=== PATIENT | female | born 1960 | race Caucasian/White ===

== ENCOUNTER → 2016-12-19 | Outpatient (REF) | payer OTHER | LOC: M LAB REF 12:56 | PROVIDERS: ATTEND Nurse Practitioner Family | DX: E03.9 Hypothyroidism, unspecified (principal) ==

== ENCOUNTER 2021-05-25 21:18 | Emergency (ER) | payer OTHER, SELFPAY ==
[~2021-05-25] VITALS: Ht 160 cm; Wt 91.3 kg
[2021-05-25 21:22] VITALS: BP 158/75
--- OUTSIDE RECORDS SUMMARY | 2021-05-25 21:29 | CCD | Continuity of Care Document ---
Author Author Gloria SANCHEZ [facility] Organization Unknown Address [address] [facility] [address] [place] [address] Phone [phone] Care Team Providers Care Livestock Auctioneer Name Role Phone Judy Maya ANP AUTM [phone] Problems Description No Information Available Social History Type Date Description Comments Sex Unknown ETOH Use Occasionally consumes alcohol MA YBE ONE DRINK A WEEK Tobacco Use Start: Unknown End: Unknown Patient is a former smoker QUIT 1990 X 10-12YRS OFF AND ON 1 PACK A DAY Allergies, Adverse Reactions, Alerts Description No Known Drug Allergies Medications Active Medications SIG Qnty Indications Ordering Provide r Date CBD Oil 25MG bid PO Or Uses The Topical Judy Pool FNP 03/27/2018 Magnesium 500mg Tablets 4 by mouth every day Judy Maya FNP 03/27/2018 [place] Thyroid 60mg Tablets Take One Tablet By Mouth Every Day 90tabs Giorgio Mendoza MD 02/13/2017 Trace Minerals 1 PO qd Occasionally Jessy Maya FNP 02/11/2016 Organically Bound Minerals 1 PO qd Christin Maya FNP 02/11/2016 Advil 200mg Capsules 2 pills 3x/d w/ food prn Skylar France M.D. 02/12/20 15 Vitamin D 1000Unit Tablets 1 by mouth every day Judy Maya FNP 01/27/2015 Herbal Supplements as directed daily Kalina Maya FNP 01/23/2014 Probiotic Capsules 1 by Judy Scott FNP 01/23/2014 Calcium 1000 + D [id number] T Judy Meyer FNP 01/13/2012 Vitamin C 500mg Chewtabs 1 po [facility]d [facility] 01/08/2010 Digestive Enzymes Tablets tid With Meals prn [facility] 01/08/2010 Immunizations Description No Information Available Vital Signs Date Vital Result Comment 04/02/2021 7:59am BP Systolic 122 mmHg RT Arm BP Diastolic 60 mmHg RT Arm Heart Rate 64 /min Height 62.25 inches 5'2.25" Weight 195.00 lb BMI (Body Mass Index) 35.4 kg/m2 03/30/2020 9:13am BP Systolic 122 mmHg RT Arm BP Diastolic 68 mmHg RT Arm Heart Rate 68 /min Height 62.25 inches 5'2.25" Weight 196.00 lb BMI (Body Mass Index) 35.6 kg/m2 Results Test Acquired Date Facility Test Result H/L Range Note Laboratory test finding 03/31/2021 [facility] Career Resource Technician: Dr Giorgio Mendoza [place], [place] [id number] [phone] Vitamin D 25-Hydroxy <pending> Complete Blood Count 03/31/2021 [facility] Career Resource Technician: [place] [address] [phone] WBC 3.7 x10*3/UL Low 4.1 - 10.9 RBC 4.81 x10*6/UL 4.20 - 6.30 Hemoglobin 14.7 g/dL 12.0 - 18.0 Hematocrit 42.7 % 37.0 - 51.0 MCV 88.6 fL 80.0 - 97.0 MCH 30.6 pg 26.0 - 32.0 MCHC 34.5 g/dL 31.0 - 38.0 RDW 13.3 % 11.6 - 13.7 PLT 227 x10*3/UL 140 - 440 MPV 8.7 FL 7.8 - 11.0 Lymph % 49.5 % 10.0 - 58.5 Mid % 9.1 % 1.7 - 9.3 Neut % 41.4 % 37.0 - 92.0 Lymph # 1.8 x10*3/UL 0.6 - 4.1 Mid # 0.4 x10*3/UL 0.1 - 0.6 Neut # 1.5 x10*3/UL Low 2.0 - 7.8 Basic Metabolic Panel 03/31/2021 [facility] Career Resource Technician: [place] [address] [phone] Glucose 97 mg/dL 74 - 99 1 BUN 12 mg/dL 7 - 18 Creatinine 0.7 mg/dL 0.6 - 1.3 Sodium 142 mEq/L 136 - 145 Potassium 4.1 mEq/L 3.5 - 5.1 Chloride 105 mEq/L 98 - 107 Carbon Dioxide 27 mEq/L 21 - 32 Calcium 9.1 mg/dL 8.5 - 10.1 GFR >= 60 mL/min >60 GFR >= 60 mL/min >60 2 Lipid Profile 03/31/2021 [facility] , Career Resource Technician: Dr Giorgio [place]endoza [place] [id number] [phone] Cholesterol 267 mg/dL High 131 - 200 Triglycerides 67 mg/dL 30 - 150 HDL Cholesterol 78 mg/dL High 35 - 60 LDL (Calculated) 176 CALC High 50 - 159 Laboratory test finding 03/31/2021 [facility] Career Resource Technician: [place] [address] [phone] Thyroid Stimulating Hormone 1.20 uIU/mL 0.3 6 - 3.74 Lipid Profile 10/02/2020 [facility] Career Resource Technician: [place] [address] [phone] Cholesterol 277 mg/dL High 131 - 200 Triglycerides 76 mg/dL 30 - 150 HDL Cholesterol 78 mg/dL High 35 - 60 LDL (Calculated) 184 CALC High 50 - 159 Laboratory test finding 10/02/2020 [facility], Career Resource Technician: [place] [address] [phone] Thyroid Stimulating Hormone 1.76 uIU/mL 0.3 6 - 3.74 1 100-125 mg/dL PRE-DIABET ES/FASTING >126 mg/dL DIABETES/FASTING 2 CHRONIC KIDNEY DISEASE STAGI NG PER NKF STAGE I & II GFR >= 60 NORMAL TO MILDLY DECREASED STAGE III GFR 30-59 MODERATELY DECREASED STAGE IV GFR 15-29 SEVERELY DECREASED STAGE V GFR <15 VERY LITTLE GFR LEFT ESRD GFR <15 ON DISABILITY SPECIALIST Procedures Date Code Description Status 04/30/2020 [id number] Mammogram Completed 04/25/2019 [id number] Mammogram Completed 04/25/2018 [id number] Mammogram Completed 04/24/2017 [id number] Mammogram Completed 04/19/2016 [id number] Mammogram Completed 07/14/2014 [id number] Mammogram Completed 07/12/2013 [id number] Mammogram Completed 07/04/2012 [id number] Mammogram Completed 04/05/2012 [id number] Colonoscopy Completed 06/24/2011 [id number] Mammogram Completed 06/23/2010 [id number] Mammogram Completed Medical Devices Description No Information Available Encounters Description No Information Available Assessments Date Code Description Provider 04/02/2021 Z00.00 Encounter for genera l adult medical examination without abnormal findings Angelica Sanchez, [facility] 04/02/2021 J30.9 Allergic rhinitis, unspecified J venancio Sanchez, [facility] 04/02/2021 E78.5 Hyperlipidemia, unspecified Maria lucille Daniel, [facility] 04/02/2021 E03.9 Hypothyroidism, unspecified Maria lucille Daniel, [facility] 04/02/2021 Z83.71 Family history of colonic polyps Angelica Sanchez, [facility] 04/02/2021 E55.9 Vitamin D deficiency, unspecifie d Angelica Sanchez, [facility] 04/02/2021 E66.09 Other obesity due to excess neli rosio Angelica Sanchez, [facility] 04/02/2021 Z68.35 Body mass index [BMI] 35.0-35.9, adult Angelica Sanchez, [facility] 10/02/2020 E78.5 Hyperlipidemia, unspecified Maria lucille Daniel, [facility] 10/02/2020 E78.5 Hyperlipidemia, unspecified Lab Schedule 10/02/2020 E03.9 Hypothyroidism, unspecified Maria lucille Daniel, [facility] 10/02/2020 E03.9 Hypothyroidism, unspecified Lab Schedule Plan of Treatment 04/02/2021 - Angelica Sanchez [facility]* Z00.00 Encounter for general adult medical examination without abnormal findings* Comments:* TSH in September, annual follow up and PRN. COVID vaccine discussed. Mammogram and FIT testing are ordered.Patient defers further pap smears for screening at this point. * J30.9 Allergic rhinitis, unspecified* Comments:* Utilizing Grape Seed nasal spray; recommend a short course of flonase daily x2 weeks. * E78.5 Hyperlipidemia, unspecified* Comments:* Lipids are above goal but improved from 09/2020. No current pharmacotherapy. Weight loss, dietary modifications and exercise are encouraged. * E03.9 Hypothyroidism, unspecified* Comments:* TSH is pending. Continues on supplementation, adjust accordingly. * Z83.71 Family history of colonic polyps* Comments:* Colonoscopy due next year. FIT testing ordered. * E55.9 Vitamin D deficiency, unspecified* Comments:* Vitamin D level is pending. Continues on supplementation. * E66.09 Other obesity due to excess calories * Z68.35 Body mass index [BMI] 35.0-35.9, adult Functional Status Description No Information Available Mental Status Description No Information Available Referrals Description No Information Available
--- OUTSIDE RECORDS SUMMARY | 2021-05-25 21:29 | CCD | Continuity of Care Document ---
Author Author [facility] Organization Unknown Address [address] [address] Phone Unavailable Care Team Providers Care Marriage Performer Name Role Phone Judy Maya ANP AUTM [phone] Problems Description No Information Available Social History [...] SIG Qnty Indications Ordering Provide r Date Krill Oil 500mg Capsules 1 po qd Judy Maya FNP 03/30/2020 Shingrix 50mcg/0.5ML Suspension Re c administer at pharmacy 1units Judy Maya FNP 03/28 CBD Oil 25MG bid PO Or Uses The Topical Kolt onJudy FNP 03/27/2018 Magnesium 500mg Tablets 4 by mouth every day Judy Maya FNP 03/27/2018 [place] Thyroid 60mg Tablets Take One Tablet By Mouth Every Day 90tabs Giorgio Mendoza MD 02/13/2017 Trace Minerals 1 PO qd Judy Maya FNP 0 02/11/2016 Organically Bound Minerals 1 PO qd Christin Maya FNP 02/11/2016 Advil 200mg Capsules 2 pills 3x/d w/ food prn Skylar France M.D. 02/12/20 15 Vitamin D 1000Unit Tablets 1 by mouth every day Judy Maya FNP 01/27/2015 Herbal Supplements as directed daily Kalina Maya FNP 01/23/2014 Probiotic Capsules 1 by Judy Scott,BRAZING MACHINE OPERATOR HELPER 01/23/2014 Calcium 1000 + D [id number] T eli Judy Maya,[facility]PHINE 01/13/2012 Vitamin C 500mg Chewtabs 1 po qd Judy Maya FNP 01/08/2010 Digestive Enzymes Tablets tid With Meals prn Judy Maya FNP 01/08/2010 Immunizations Description No Information Available Vital Signs Date Vital Result Comment 03/30/2020 9:13am BP Systolic 122 mmHg RT Arm BP Diastolic 68 mmHg RT Arm Heart Rate 68 /min Height 62.25 inches 5'2.25" Weight 196.00 lb BMI (Body Mass Index) 35.6 kg/m2 03/28/2019 8:05am BP Systolic 128 mmHg RT Arm BP Diastolic 70 mmHg RT Arm Heart Rate 70 /min Height 62.25 inches 5'2.25" Weight 197.12 lb O2 % BldC Oximetry 98 % RM Air BMI (Body Mass Index) 35.8 kg/m2 Results Test Acquired Date Facility Test Result H/L Range Note Laboratory test finding 03/31/2021 [facility] Image Archivist: [place] [address] [phone] Vitamin D 25-Hydroxy <pending> Laboratory test finding 03/31/2021 [facility] sachin Ayon Image Archivist: LISETTE Lopez [address] [phone] TSH <pending> Lipid Profile 10/02/2020 [facility] Jono Image Archivist: LISETTE Lopez [address] [phone] Cholesterol 277 mg/dL High 131 - 200 Triglycerides 76 mg/dL 30 - 150 HDL Cholesterol 78 mg/dL High 35 - 60 LDL (Calculated) 184 CALC High 50 - 159 Laboratory test finding 10/02/2020 [facility] Image Archivist: LISETTE Lopez [address] [phone] Thyroid Stimulating Hormone 1.76 uIU/mL 0.3 6 - 3.74 Procedures Date Code Description Status 04/30/2020 [id number] Mammogram Completed 04/25/2019 [id number] Mammogram Completed 04/25/2018 [id number] Mammogram Completed 04/24/2017 [id number] Mammogram Completed 04/19/2016 [id number] Mammogram Completed 07/14/2014 [id number] Mammogram Completed 07/12/2013 [id number] Mammogram Completed 07/04/2012 [id number] Mammogram Completed 04/05/2012 [id number] Colonoscopy Completed 06/24/2011 [id number] Mammogram Completed 06/23/2010 [id number] Mammogram Completed Medical Devices Description No Information Available Encounters Description No Information Available Assessments Date Code Description Provider 10/02/2020 E78.5 Hyperlipidemia, unspecified Maria Sanchez, BRAZING MACHINE OPERATOR HELPER 10/02/2020 E78.5 Hyperlipidemia, unspecified Lab Schedule 10/02/2020 E03.9 Hypothyroidism, unspecified DELPHINE Prieto 10/02/2020 E03.9 Hypothyroidism, unspecified Lab Schedule Plan of Treatment Future Appointment(s):* 04/02/2021 8:00 am - DELPHINE Vo at [facility] 03/30/2020 - DELPHINE Vo* Z00.00 Encounter for general adult medical examination without abnormal findings* Comments:* Follows annually. Normal exam. RTC PRN. Refuses all immunizations including annual flu. * E78.5 Hyperlipidemia, unspecified* Comments:* Significantly higher, about 20 points, from last year. Patient unsure of cause. Reviewed diet and exercise, will repeat in 6 months lab only. Heart healthy mediterranean style diet reviewed and encouraged. * E03.9 Hypothyroidism, unspecified* Comments:* Clinically and chemically euthyroid. On Gerber Thyroid 60 mg daily. * J30.9 Allergic rhinitis, unspecified* Comments:* Having a particularly bad year, using herbal supplement which is quite helpful. * Z83.71 Family history of colonic polyps* Comments:* Annual stool guaiac, kit given today.Colonoscopy 2011, will be due she believes in two years. * E55.9 Vitamin D deficiency, unspecified* Comments:* Vitamin D level is pending. Continues on supplementation. * E66.09 Other obesity due to excess calories* Comments:* Down one pound. Commended on loss.Weight loss would be favorable.Implement dietary modifications (low fat, low carb, high fiber, lean proteins, decreasing porti on sizes, small frequent high protein snacks, and making substitutions in refined sugars).Implement regular exercise as tolerated and increase daily water intake. * Z68.35 Body mass index (BMI) 35.0-35.9, adult * Z13.89 Encounter for screening for other disorder * All * New Medication:* Krill Oil 500 mg - 1 po qd * Comments:* Nonsmoker. Tetanus 11/22/04. Refused immunizations. Mammogram order given. Pap should be updated next year. Flu shot is encouraged but patient does refuse.COVID precautions are discussed and social distancing/mask use/ frequent hand washing and sanitizing are encouraged.Recheck TSH and lipids in 6 months.Follow up annually, sooner PRN. Functional Status Description No Information Available Mental Status Description No Information Available Referrals Description No Information Available
--- OUTSIDE RECORDS SUMMARY | 2021-05-25 21:29 | CCD | Continuity of Care Document ---
Author Author [facility] Organization Unknown Address [address] [address] Phone Unavailable Problems Description No Information Available Social History [...] mouth every day Judy Maya FNP 03/27/2018 [place] Thyroid 60mg Tablets Take One Tablet By Mouth Every Day 90tabs Giorgio Mendoza MD 02/13/2017 Trace Minerals 1 PO qd Occasionally Jessy Maya FNP 02/11/2016 Organically Bound Minerals 1 PO qd Christin MayaLOGISTICS MANAGEMENT SPECIALIST 02/11/2016 Advil 200mg Capsules 2 pills 3x/d w/ food prn Skylar France M.D. 02/12/20 15 Vitamin D 1000Unit Tablets 1 by mouth every day Judy Maya FNP 01/27/2015 Herbal Supplements as directed daily Kalina Maya FNP 01/23/2014 Probiotic Capsules 1 by Judy Scott FNP 01/23/2014 Calcium 1000 + D [id number] T Judy Meyer FNP 01/13/2012 Vitamin C [...] H/L Range Note Laboratory test finding 03/31/2021 [facility] raghavendra, [place] Heavy Coil Winder: Dr [place]ior[place] [address] [phone] Vitamin D 25-Hydroxy 86.1 ng/ml High 24.0 - 80.0 1 Complete Blood Count 03/31/2021 [facility] Heavy Coil Winder: Dr Gior[place] [address] [phone] WBC 3.7 x10*3/UL Low 4.1 - 10.9 [...] 2.0 - 7.8 Basic Metabolic Panel 03/31/2021 [facility] Heavy Coil Winder: [place] [address] [phone] Glucose 97 mg/dL 74 - 99 2 BUN 12 mg/dL 7 - 18 Creatinine 0.7 mg/dL 0.6 - 1.3 Sodium 142 mEq/L 136 - 145 Potassium 4.1 mEq/L 3.5 - 5.1 Chloride 105 mEq/L 98 - 107 Carbon Dioxide 27 mEq/L 21 - 32 Calcium 9.1 mg/dL 8.5 - 10.1 GFR >= 60 mL/min >60 GFR >= 60 mL/min >60 3 Lipid Profile 03/31/2021 [facility] , Heavy Coil Winder: Dr Giorgio [place] [address] [phone] Cholesterol 267 mg/dL High 131 - 200 Triglycerides 67 mg/dL 30 - 150 HDL Cholesterol 78 mg/dL High 35 - 60 LDL (Calculated) 176 CALC High 50 - 159 Laboratory test finding 03/31/2021 [facility], Heavy Coil Winder: Dr Giorgio Mendoza [place] [id number] [phone] Thyroid Stimulating Hormone 1.20 uIU/mL 0.3 6 - 3.74 Lipid Profile 10/02/2020 [facility] , Heavy Coil Winder: Dr Giorgio [place] [address] [phone] Cholesterol 277 mg/dL High 131 - 200 Triglycerides 76 mg/dL 30 - 150 HDL Cholesterol 78 mg/dL High 35 - 60 LDL (Calculated) 184 CALC High 50 - 159 Laboratory test finding 10/02/2020 [facility], Heavy Coil Winder: Dr Giorgio Mendoza [place] [id number] [phone] Thyroid Stimulating Hormone 1.76 uIU/mL 0.3 6 - 3.74 1 This test was performed [employer] Vitamin D immunoassay kit. Values obtained with different assay methods should not be used interchangeably. 2 100-125 mg/dL PRE-DIABET ES/FASTING >126 mg/dL DIABETES/FASTING 3 CHRONIC KIDNEY DISEASE STAGI NG PER NKF STAGE I & II GFR >= 60 NORMAL TO MILDLY DECREASED STAGE III GFR 30-59 MODERATELY DECREASED STAGE IV GFR 15-29 SEVERELY DECREASED STAGE V GFR <15 VERY LITTLE GFR LEFT ESRD GFR <15 ON ROLLER CLEANER Procedures Date Code Description Status 04/30/2020 [id number] Mammogram Completed 04/25/2019 [id number] Mammogram Completed 04/25/2018 [id number] Mammogram Completed 04/24/2017 [id number] Mammogram Completed 04/19/2016 [id number] Mammogram Completed 07/14/2014 [id number] Mammogram Completed 07/12/2013 [id number] Mammogram Completed 07/04/2012 [id number] Mammogram Completed 04/05/2012 [id number] Colonoscopy Completed 06/24/2011 [id number] Mammogram Completed 06/23/2010 [id number] Mammogram Completed Medical Devices Description No Information Available Encounters Description No Information Available Assessments Date Code Description Provider 04/02/2021 Z00.00 Encounter for genera l adult medical examination without abnormal findings Angelica Sanchez, [facility] 04/02/2021 J30.9 Allergic rhinitis, unspecified J venancio Sanchez, [facility] 04/02/2021 E78.5 Hyperlipidemia, unspecified Maria Sanchez, [facility] 04/02/2021 E03.9 Hypothyroidism, unspecified Maria lucilletalia Sanchez, [facility] 04/02/2021 Z83.71 Family history of colonic polyps Angelica Sanchez, [facility] 04/02/2021 E55.9 Vitamin D deficiency, unspecifie d Angelica Sanchez, [facility] 04/02/2021 E66.09 Other obesity due to excess neli rosio Angelica Sanchez, [facility] 04/02/2021 M15.9 Polyosteoarthritis, unspecified Angelica Sanchez, [facility] 04/02/2021 Z68.35 Body mass index [BMI] 35.0-35.9, adult Angelica Sanchez, [facility] 10/02/2020 E78.5 Hyperlipidemia, unspecified Maria lucilletalia Sanchez, [facility] 10/02/2020 E78.5 Hyperlipidemia, unspecified Lab Schedule 10/02/2020 E03.9 Hypothyroidism, unspecified Maria lucille Daniel, [facility] 10/02/2020 E03.9 Hypothyroidism, unspecified Lab Schedule Plan of Treatment Future Appointment(s):* 04/07/2022 9:00 am - [facility]INE Vo at [facility] * 09/29/2021 9:10 am - Lab Schedule at [facility] 04/02/2021 - DELPHINE Vo* Z00.00 Encounter for general adult medical examination without abnormal findings* Comments:* TSH in September, annual follow up and PRN. COVID vaccine discussed. Mammogram and FIT testing are ordered.Patient defers further pap smears for screening at this point. * J30.9 Allergic rhinitis, unspecified* Comments:* Utilizing Grape Seed nasal spray; recommend a short course of Flonase daily x2 weeks. * E78.5 Hyperlipidemia, unspecified* [...] Other obesity due to excess calories* Comments:* Weight loss would be favorable.Implement dietary modifications (low fat, low carb, high fiber, lean proteins, decreasing portion sizes, small frequent high protein snacks, and making substitutions in refined sugars).Implement regular exercise as tolerated and increase daily water intake. * M15.9 Polyosteoarthritis, unspecified* Comments:* May use Advil or Tylenol arthritis as per package instruction. Somewhat worse lately as she is pushing herself to do more as she is planning to move. * Z68.35 Body mass index [BMI] 35.0-35.9, adult * All * Comments:* Nonsmoker. Tetanus 11/22/04 booster with injury. Refused immunizations. Mammogram order given. Patient defers further routine screening pap smears.Flu shot is encouraged but patient does refuse.COVID precautions are discussed and social distancing/mask use/ frequent hand washing and sanitizing are encouraged. Vaccine discussed patient refuses at this point. Recheck TSH and lipids in 6 months.Follow up annually, sooner PRN. Functional Status Description No Information Available Mental Status Description No Information Available Referrals Description No Information Available
--- OUTSIDE RECORDS SUMMARY | 2021-05-25 21:29 | CCD | Continuity of Care Document ---
Author Author [facility] Organization Unknown Address [address] [address] Phone Unavailable Care Team Providers Care Refractory Tile Helper Name Role Phone Judy Maya ANP AUTM [phone] Problems Description No Information Available Social History [...] mouth every day Judy Maya FNP 03/27/2018 [place] Thyroid 60mg Tablets Take One Tablet By [...] FNP 01/23/2014 Probiotic Capsules 1 by Judy Soctt,DELPHINE 01/23/2014 Calcium 1000 + D [id number] T eli Judy Maya,TRANSLATOR/INTERPRETER 01/13/2012 Vitamin C 500mg Chewtabs 1 po [...] H/L Range Note Laboratory test finding 03/31/2021 [facility] sachin mabry Live In Housekeeper Nanny: Dr Giorgio Mendoza [place], [place] [id number] [phone] Vitamin D 25-Hydroxy <pending> Complete Blood Count 03/31/2021 [facility] Live In Housekeeper Nanny: [place] [address] [phone] WBC 3.7 x10*3/UL Low 4.1 - 10.9 [...] 2.0 - 7.8 Basic Metabolic Panel 03/31/2021 [facility] Live In Housekeeper Nanny: [place] [address] [phone] Glucose 97 mg/dL 74 - 99 1 [...] 60 mL/min >60 2 Lipid Profile 03/31/2021 [facility] , Live In Housekeeper Nanny: Dr Giorgio [place]endoza [place] [id number] [phone] Cholesterol 267 mg/dL High 131 - 200 Triglycerides 67 mg/dL 30 - 150 HDL Cholesterol 78 mg/dL High 35 - 60 LDL (Calculated) 176 CALC High 50 - 159 Laboratory test finding 03/31/2021 [facility] issherif, Live In Housekeeper Nanny: [place] [address] [phone] Thyroid Stimulating Hormone 1.20 uIU/mL 0.3 6 - 3.74 Lipid Profile 10/02/2020 [facility] , Live In Housekeeper Nanny: Dr Giorgio [place]endoza [place] [id number] [phone] Cholesterol 277 mg/dL High 131 - 200 Triglycerides 76 mg/dL 30 - 150 HDL Cholesterol 78 mg/dL High 35 - 60 LDL (Calculated) 184 CALC High 50 - 159 Laboratory test finding 10/02/2020 [facility], Live In Housekeeper Nanny: [place] [address] [phone] Thyroid Stimulating Hormone 1.76 uIU/mL 0.3 6 - 3.74 1 100-125 mg/dL PRE-DIABET ES/FASTING >126 mg/dL DIABETES/FASTING 2 CHRONIC KIDNEY DISEASE STAGI NG PER NKF STAGE I & II GFR >= 60 NORMAL TO MILDLY DECREASED STAGE III GFR 30-59 MODERATELY DECREASED STAGE IV GFR 15-29 SEVERELY DECREASED STAGE V GFR <15 VERY LITTLE GFR LEFT ESRD GFR <15 ON FACILITY ASSISTANT Procedures Date Code Description Status 04/30/2020 [id number] Mammogram Completed 04/25/2019 [id number] Mammogram Completed 04/25/2018 [id number] Mammogram Completed 04/24/2017 [id number] Mammogram Completed 04/19/2016 [id number] Mammogram Completed 07/14/2014 [id number] Mammogram Completed 07/12/2013 [id number] Mammogram Completed 07/04/2012 [id number] Mammogram Completed 04/05/2012 [id number] Colonoscopy Completed 06/24/2011 [id number] Mammogram Completed 06/23/2010 [id number] Mammogram Completed Medical Devices Description No Information Available Encounters Description No Information Available Assessments Date Code Description Provider 10/02/2020 E78.5 Hyperlipidemia, unspecified DELPHINE Prieto 10/02/2020 E78.5 Hyperlipidemia, unspecified Lab Schedule 10/02/2020 E03.9 Hypothyroidism, unspecified DELPHINE Prieto 10/02/2020 E03.9 Hypothyroidism, unspecified Lab Schedule Plan of Treatment Future Appointment(s):* 04/02/2021 8:00 am - [facility]INE Vo at [facility] 03/30/2020 - DELPHINE Vo* Z00.00 [...] unspecified* Comments:* Clinically and chemically euthyroid. On [place] Thyroid 60 mg daily. * J30.9 Allergic [...]
--- OUTSIDE RECORDS SUMMARY | 2021-05-25 21:29 | CCD | Continuity of Care Document ---
Author Author Lab ScheduleGloria Organization Unknown Address [address] [address] Phone Unavailable Care Team Providers Care Mover Name Role Phone Judy Maya ANP AUTM [phone] Problems Description No Information Available Social History [...] mouth every day Judy Maya FNP 03/27/2018 [place] Thyroid 60mg Tablets Take One Tablet By [...] FNP 01/23/2014 Probiotic Capsules 1 by Judy Scott,ELECTRODE CLEANING MACHINE OPERATOR 01/23/2014 Calcium 1000 + D [id number] T eli Judy Maya,DELPHINE 01/13/2012 Vitamin C [...] H/L Range Note Laboratory test finding 03/31/2021 [place] Abbe mabry Map Compiler: [place] [address] [phone] Vitamin D 25-Hydroxy <pending> Laboratory test finding 03/31/2021 [place] sachin Ayon Map Compiler: LISETTE Lopez [address] [phone] TSH <pending> Lipid Profile 10/02/2020 [place] Jono Map Compiler: LISETTE Lopez [address] [phone] Cholesterol 277 mg/dL High 131 - 200 Triglycerides 76 mg/dL 30 - 150 HDL Cholesterol 78 mg/dL High 35 - 60 LDL (Calculated) 184 CALC High 50 - 159 Laboratory test finding 10/02/2020 [place] [facility] mabry Map Compiler: LISETTE Lopez [address] [phone] Thyroid Stimulating Hormone 1.76 uIU/mL 0.3 6 - 3.74 Procedures Date Code Description Status 04/30/2020 [id number] Mammogram Completed 04/25/2019 [id number] Mammogram Completed 04/25/2018 [id number] Mammogram Completed 04/24/2017 [id number] Mammogram Completed 04/19/2016 [id number] Mammogram Completed 07/14/2014 [id number] Mammogram Completed 07/12/2013 [id number] Mammogram Completed 07/04/2012 [id number] Mammogram Completed 04/05/2012 [id number] Colonoscopy Completed 06/24/2011 [id number] Mammogram Completed 06/23/2010 [id number] Mammogram Completed Medical Devices Description No Information Available Encounters Description No Information Available Assessments Date Code Description Provider 10/02/2020 E78.5 Hyperlipidemia, unspecified Maria Sanchez, ELECTRODE CLEANING MACHINE OPERATOR 10/02/2020 E78.5 Hyperlipidemia, unspecified Lab Schedule 10/02/2020 E03.9 Hypothyroidism, unspecified DELPHINE Prieto 10/02/2020 E03.9 Hypothyroidism, unspecified Lab Schedule Plan of Treatment Future Appointment(s):* 04/02/2021 8:00 am - DELPHINE Vo at [facility] 03/30/2020 - DELPHINE Vo* Z00.00 [...] unspecified* Comments:* Clinically and chemically euthyroid. On [place] Thyroid 60 mg daily. * J30.9 Allergic [...]
--- OUTSIDE RECORDS SUMMARY | 2021-05-25 21:29 | CCD | Continuity of Care Document ---
Author Author Gloria SANCHEZ [facility] Organization Unknown Address [address] [facility] [address] [place] [address] Phone [phone] Problems Description No Information Available Social History [...] mouth every day Judy Maya FNP 03/27/2018 [place] Thyroid 60mg Tablets Take One Tablet By Mouth Every Day 90tabs Giorgio Mendoza MD 02/13/2017 [place] Minerals 1 PO qd Occasionally Jessy Maya FNP 02/11/2016 Organically Bound Minerals 1 PO qd Christin Maya FNP 02/11/2016 Advil 200mg Capsules 2 pills 3x/d w/ food prn Skylar France M.D. 02/12/20 15 Vitamin D 1000Unit Tablets 1 by mouth every other day Giorgio Mendoza MD 01/27/2015 Herbal Supplements as directed daily Kalina Maay FNP 01/23/2014 Probiotic Capsules 1 by Judy Scott FNP 01/23/2014 Calcium 1000 + D [id number] T Judy Meyer FNP 01/13/2012 Vitamin C [...] H/L Range Note Laboratory test finding 03/31/2021 [place] [employer] sachin mabry Export Agent: [place] [address] [phone] Vitamin D 25-Hydroxy 86.1 ng/ml High 24.0 - 80.0 1 Complete Blood Count 03/31/2021 [place] Export Agent: [place] [address] [phone] WBC 3.7 x10*3/UL Low 4.1 - 10.9 [...] 2.0 - 7.8 Basic Metabolic Panel 03/31/2021 [facility] Export Agent: Dr Giorgio Mendoza [place], [place] [id number] [phone] Glucose 97 mg/dL 74 - 99 2 [...] 60 mL/min >60 3 Lipid Profile 03/31/2021 [facility] Export Agent: Dr Gior[place] [address] [phone] Cholesterol 267 mg/dL High 131 - 200 Triglycerides 67 mg/dL 30 - 150 HDL Cholesterol 78 mg/dL High 35 - 60 LDL (Calculated) 176 CALC High 50 - 159 Laboratory test finding 03/31/2021 [place] [facility] Export Agent: [place] [address] [phone] Thyroid Stimulating Hormone 1.20 uIU/mL 0.3 6 - 3.74 1 This test was performed [employer] IP Vitamin D immunoassay kit. Values obtained with [...] LITTLE GFR LEFT ESRD GFR <15 ON DIGITAL PROJECT MANAGER Procedures Date Code Description Status 04/02/2021 24839 Est Prevent Med (40-64Yrs) Compl eted 04/30/2020 [id number] Mammogram Completed 04/25/2019 [id number] Mammogram Completed 04/25/2018 [id number] Mammogram Completed 04/24/2017 [id number] Mammogram Completed 04/19/2016 [id number] Mammogram Completed 07/14/2014 [id number] Mammogram Completed 07/12/2013 [id number] Mammogram Completed 07/04/2012 [id number] Mammogram Completed 04/05/2012 [id number] Colonoscopy Completed 06/24/2011 [id number] Mammogram Completed 06/23/2010 [id number] Mammogram Completed Medical Devices Description No Information Available Encounters Type Date Location Provider Dx Diagnosis Office Visit 04/02/2021 8:00a [facility], [facility] Z00.00 Encntr for general adult medical exam w/ o abnormal findings J30.9 Allergic rhinitis, unspecifi ed E78.5 Hyperlipidemia, unspecified E03.9 Hypothyroidism, unspecified Z83.71 Family history of colonic po lyps E55.9 Vitamin D deficiency, unspec ified M15.9 Polyosteoarthritis, unspecif ied E66.09 Other obesity due to excess calories Z68.35 Body mass index [BMI] 35.0-3 5.9, adult Z13.89 Encounter for screening for other disorder Assessments Date Code Description Provider 04/02/2021 Z00.00 Encounter for genera l adult medical examination without abnormal findings Angelica Sanchez, [facility] 04/02/2021 J30.9 Allergic rhinitis, unspecified J illian Daniel, [facility] 04/02/2021 E78.5 Hyperlipidemia, unspecified Maria lucille Daniel, [facility] 04/02/2021 E03.9 Hypothyroidism, unspecified Maria lucille Daniel, [facility] 04/02/2021 Z83.71 Family history of colonic polyps Angelica Sanchez, [facility] 04/02/2021 E55.9 Vitamin D deficiency, unspecifie d Angelica Daniel, [facility] 04/02/2021 M15.9 Polyosteoarthritis, unspecified Angelica Daniel, [facility] 04/02/2021 E66.09 Other obesity due to excess neli rosio Angelica Sanchez, [facility] 04/02/2021 Z68.35 Body mass index [BMI] 35.0-35.9, adult Angelica Sanchez, [facility] 04/02/2021 Z13.89 Encounter for screening for othe r disorder Angelica Sanchez, [facility] 03/31/2021 Z00.00 Encounter for genera l adult medical examination without abnormal findings Angelica Sanchez, [facility] 03/31/2021 Z00.00 Encounter for genera l adult medical examination without abnormal findings Lab Schedule 03/31/2021 E78.00 Pure hypercholesterolemia, unspe cified Angelica Daniel, [facility] 03/31/2021 E78.00 Pure hypercholesterolemia, unspe cified Lab Schedule 03/31/2021 E03.9 Hypothyroidism, unspecified Maria adkins Daniel, [facility] 03/31/2021 E03.9 Hypothyroidism, unspecified Lab Schedule 03/31/2021 E55.9 Vitamin D deficiency, unspecifie d Angelica Garzara, [facility] 03/31/2021 E55.9 Vitamin D deficiency, unspecifie d Lab Schedule Plan of Treatment Future Appointment(s):* 04/07/2022 9:00 am - [place]INE Vo at [facility] * 09/29/2021 9:10 am - Lab Schedule at [facility] 04/02/2021 - DELPHINE Vo* Z00.00 [...] level is pending. Continues on supplementation. * M15.9 Polyosteoarthritis, unspecified* Comments:* May use Advil or Tylenol arthritis as per package instruction. Somewhat worse lately as she is pushing herself to do more as she is planning to move. * E66.09 Other obesity due to excess calories* Comments:* Weight loss would be favorable.Implement dietary modifications (low fat, low carb, high fiber, lean proteins, decreasing portion sizes, small frequent high protein snacks, and making substitutions in refined sugars).Implement regular exercise as tolerated and increase daily water intake. * Z68.35 Body mass index [BMI] 35.0-35.9, adult * Z13.89 Encounter for screening for other disorder * All * Comments:* Nonsmoker. Tetanus 11/22/04 [...]
--- OUTSIDE RECORDS SUMMARY | 2021-05-25 21:29 | CCD | Continuity of Care Document ---
Author Author Lab ScheduleGloria Organization Unknown Address [address] [address] Phone Unavailable Care Team Providers Care Video Game Repair Technician Name Role Phone Judy Maya ANP AUTM [phone] Problems Description No Information Available Social History [...] mouth every day Judy Maya FNP 03/27/2018 [place] Thyroid 60mg Tablets Take One Tablet By [...] FNP 01/23/2014 Probiotic Capsules 1 by Judy Scott,FIREARMS INSPECTOR 01/23/2014 Calcium 1000 + D [id number] T eli Judy Maya,DELPHINE 01/13/2012 Vitamin C [...] H/L Range Note Laboratory test finding 03/31/2021 [place] [facility] mabry Manager Mental Health: [place] [address] [phone] Vitamin D 25-Hydroxy <pending> Laboratory test finding 03/31/2021 [place] s[place]in Ayon Manager Mental Health: LISETTE Lopez [address] [phone] TSH <pending> Lipid Profile 10/02/2020 [place] Jono Manager Mental Health: LISETTE Lopez [address] [phone] Cholesterol 277 mg/dL High 131 - 200 Triglycerides 76 mg/dL 30 - 150 HDL Cholesterol 78 mg/dL High 35 - 60 LDL (Calculated) 184 CALC High 50 - 159 Laboratory test finding 10/02/2020 [place] [facility] mabry Manager Mental Health: LISETTE Lopez [address] [phone] Thyroid Stimulating Hormone 1.76 uIU/mL 0.3 6 - 3.74 Procedures Date Code Description Status 04/30/2020 [id number] Mammogram Completed 04/25/2019 [id number] Mammogram Completed 04/25/2018 [id number] Mammogram Completed 04/24/2017 [id number] Mammogram Completed 04/19/2016 [id number] Mammogram Completed 07/14/2014 [id number] Mammogram Completed 07/12/2013 [id number] Mammogram Completed 07/04/2012 [id number] Mammogram Completed 04/05/2012 [id number] Colonoscopy Completed 06/24/2011 [id number] Mammogram Completed 06/23/2010 [id number] Mammogram Completed Medical Devices Description No Information Available Encounters Description No Information Available Assessments Date Code Description Provider 10/02/2020 E78.5 Hyperlipidemia, unspecified Maria Sanchez, FIREARMS INSPECTOR 10/02/2020 E78.5 Hyperlipidemia, unspecified Lab Schedule 10/02/2020 E03.9 Hypothyroidism, unspecified DELPHINE Prieto 10/02/2020 E03.9 Hypothyroidism, unspecified Lab Schedule Plan of Treatment Future Appointment(s):* 04/02/2021 8:00 am - DELPHINE Vo at [facility] 03/30/2020 - DELPHINE Vo* Z00.00 [...] unspecified* Comments:* Clinically and chemically euthyroid. On [place] Thyroid 60 mg daily. * J30.9 Allergic [...]
--- OUTSIDE RECORDS SUMMARY | 2021-05-25 21:29 | CCD | Continuity of Care Document ---
Author Author Lab ScheduleGloria Organization Unknown Address [address] [address] Phone Unavailable Problems Description No Information Available [...] mouth every day Judy Maya FNP 03/27/2018 [place] Thyroid 60mg Tablets Take One Tablet By [...] Scott FNP 01/23/2014 Calcium 1000 + D [id number] T Judy Meyer FNP 01/13/2012 Vitamin C [...] H/L Range Note Laboratory test finding 03/31/2021 [place] [employer] Agent raghavendra, sachin Chlorinator: [place] [address] [phone] Vitamin D 25-Hydroxy 86.1 ng/ml High 24.0 - 80.0 1 Complete Blood Count 03/31/2021 [place] Nurse Practitioner [facility] pc Chlorinator: [place]ior[place] [address] [phone] WBC 3.7 x10*3/UL Low 4.1 - 10.9 [...] 2.0 - 7.8 Basic Metabolic Panel 03/31/2021 [facility] Chlorinator: Dr i[place] [address] [phone] Glucose 97 mg/dL 74 - 99 2 [...] 60 mL/min >60 3 Lipid Profile 03/31/2021 [facility] Chlorinator: [place] [address] [phone] Cholesterol 267 mg/dL High 131 - 200 Triglycerides 67 mg/dL 30 - 150 HDL Cholesterol 78 mg/dL High 35 - 60 LDL (Calculated) 176 CALC High 50 - 159 Laboratory test finding 03/31/2021 [place] [facility] [employer] [facility] Chlorinator: Dr [place] [address] [phone] Thyroid Stimulating Hormone 1.20 uIU/mL 0.3 6 - 3.74 1 This test was performed [employer] IP Vitamin D immunoassay kit. Values obtained [...] LITTLE GFR LEFT ESRD GFR <15 ON MOTOR DRIVER Procedures Date Code Description Status 04/30/2020 [id number] Mammogram Completed 04/25/2019 [id number] Mammogram Completed 04/25/2018 [id number] Mammogram Completed 04/24/2017 [id number] Mammogram Completed 04/19/2016 [id number] Mammogram Completed 07/14/2014 [id number] Mammogram Completed 07/12/2013 [id number] Mammogram Completed 07/04/2012 [id number] Mammogram Completed 04/05/2012 [id number] Colonoscopy Completed 06/24/2011 [id number] Mammogram Completed 06/23/2010 [id number] Mammogram Completed Medical Devices Description No Information Available Encounters Description No Information Available Assessments Date Code Description Provider 04/02/2021 Z00.00 Encounter for genera l adult medical examination without abnormal findings Angelica Daniel, [facility] 04/02/2021 J30.9 Allergic rhinitis, unspecified J illlucille Garzara, [facility] 04/02/2021 E78.5 Hyperlipidemia, unspecified Maira lucille Daniel, [facility] 04/02/2021 E03.9 Hypothyroidism, unspecified Maria lucille Daniel, [facility] 04/02/2021 Z83.71 Family history of colonic polyps Angelica Sanchez, [facility] 04/02/2021 E55.9 Vitamin D deficiency, unspecifie d Angelica Sanchez, [facility] 04/02/2021 E66.09 Other obesity due to excess neli rosio Angelicaamie Sanchez, [facility] 04/02/2021 M15.9 Polyosteoarthritis, unspecified Angelica Daniel, [facility] 04/02/2021 Z68.35 Body mass index [BMI] 35.0-35.9, adult Angelica Daniel, [facility] 03/31/2021 Z00.00 Encounter for genera l adult medical examination without abnormal findings Angelica Daniel, [facility] 03/31/2021 Z00.00 Encounter for genera l adult medical examination without abnormal findings Lab Schedule 03/31/2021 E78.00 Pure hypercholesterolemia, unspe cified Angelica Garzara, [facility] 03/31/2021 E78.00 Pure hypercholesterolemia, unspe cified Lab Schedule 03/31/2021 E03.9 Hypothyroidism, unspecified Maria lucille Daniel, [facility] 03/31/2021 E03.9 Hypothyroidism, unspecified Lab Schedule 03/31/2021 E55.9 Vitamin D deficiency, unspecifie d Angelica Sanchez, [facility] 03/31/2021 E55.9 Vitamin D deficiency, unspecifie d Lab Schedule Plan of Treatment Future Appointment(s):* 04/07/2022 9:00 am - MINH VoP at [facility] * 09/29/2021 9:10 am - Lab Schedule at [facility] 04/02/2021 - DELPHINE Vo* Z00.00 [...]
--- OUTSIDE RECORDS SUMMARY | 2021-05-25 21:30 | CCD ---
Author Author [facility] Organization [facility] Address Unknown Phone Unavailable Care Team Providers Care Certified Alcohol Drug Counselor Name Role Phone Daniel, Angelica TOOL MECHANIC Unavailable Unavailable Daniel, Angelica TOOL MECHANIC Unavailable Unavailable Daniel, Angelica TOOL MECHANIC Unavailable Unavailable Daniel, Angelica TOOL MECHANIC Unavailable Unavailable Daniel, Angelica TOOL MECHANIC Unavailable Unavailable Daniel, Angelica TOOL MECHANIC Unavailable Unavailable Daniel, Angelica TOOL MECHANIC Unavailable Unavailable Daniel, Angelica TOOL MECHANIC Unavailable Unavailable Daniel, Angelica TOOL MECHANIC Unavailable Unavailable Daniel, Angelica TOOL MECHANIC Unavailable Unavailable Daniel, Angelica TOOL MECHANIC Unavailable Unavailable Daniel, Angelica TOOL MECHANIC Unavailable Unavailable Daniel, Angelica TOOL MECHANIC Unavailable Unavailable Daniel, Angelica TOOL MECHANIC Unavailable Unavailable Daniel, Angelica TOOL MECHANIC Unavailable Unavailable Daniel, Angelica TOOL MECHANIC Unavailable Unavailable Daniel, Angelica TOOL MECHANIC Unavailable Unavailable Daniel, Angelica TOOL MECHANIC Unavailable Unavailable Daniel, Angelica TOOL MECHANIC Unavailable Unavailable Daniel, Angelica TOOL MECHANIC Unavailable Unavailable Daniel, Angelica TOOL MECHANIC Unavailable Unavailable Daniel, Angelica TOOL MECHANIC Unavailable Unavailable Daniel, Angelica TOOL MECHANIC Unavailable Unavailable Daniel, Angelica TOOL MECHANIC Unavailable Unavailable Daniel, Angelica TOOL MECHANIC Unavailable Unavailable Daniel, Angelica TOOL MECHANIC Unavailable Unavailable Daniel, Angelica TOOL MECHANIC Unavailable Unavailable Daniel, Angelica TOOL MECHANIC Unavailable Unavailable Daniel, Angelica TOOL MECHANIC Unavailable Unavailable Daniel, Angelica TOOL MECHANIC Unavailable Unavailable Daniel, Angelica TOOL MECHANIC Unavailable Unavailable Daniel, Angelica TOOL MECHANIC Unavailable Unavailable Daniel, Angelica TOOL MECHANIC Unavailable Unavailable Daniel, Angelica TOOL MECHANIC Unavailable Unavailable Daniel, Angelica TOOL MECHANIC Unavailable Unavailable Re-disclosure Warning The records that you are about to access may contain information from federally-assisted alcohol or drug abuse programs. If such information is present, then the following federally mandated warning applies: This information has been disclosed to you from records protected by federal confidentiality rules (42 CFR part 2). The federal rules prohibit you from making any further disclosure of this information unless further disclosure is expressly permitted by the written consent of the person to whom it pertains or as otherwise permitted by 42 CFR part 2. A general authorization for the release of medical or other information is NOT sufficient for this purpose. The Federal rules restrict any use of the information to criminally investigate or prosecute any alcohol or drug abuse patient.The records that you are about to access may contain highly sensitive health information, the redisclosure of which is protected by Article 27-F of the [facility] Public Health law. If you continue you may have access to information: Regarding HIV / AIDS; Provided by facilities licensed or operated by the [facility] Office of Mental Health; or Provided by the [facility] Office for People With Developmental Disabilities. If such information is present, then the following [facility] mandated warning applies: This information has been disclosed to you from confidential records which are protected by state law. State law prohibits you from making any further disclosure of this information without the specific written consent of the person to whom it pertains, or as otherwise permitted by law. Any unauthorized further disclosure in violation of state law may result in a fine or mcfp sentence or both. A general authorization for the release of medical or other information is NOT sufficient authorization for further disc losure. Encounters Encounter Providers Location Date Indications Data Source(s ) Outpatient Attender: Angelica Mello 08:00:00 AM EDT [facility] ([facility] ) Outpatient Attender: Angelica Mello 09:00:00 AM EDT [facility] ([facility] ) Medications Medication Brand Name Start Date Product Form Dose Route Admi nistrative Instructions Pharmacy Instructions Status Indications Reaction Description Data Source(s) 875 mg 04/15/2021 12:00:00 AM EDT tablet 14 TAKE ONE TABLET BY MOUTH TWICE A DAY FOR 7 DAYS TAKE ONE TABLET BY MOUTH TWICE A DAY FOR 7 DAYS SOLD: 2020 [facility] 60 mg 03/26/2021 12:00:00 AM EDT tablet 90 TAKE ONE TABLET BY MOUTH EVERY DAY TAKE ONE TABLET BY MOUTH EVERY DAY SOLD: 03/31/2021 [facility] 60 mg 03/30/2020 12:00:00 AM EDT tablet 90 TAKE ONE TABLET BY MOUTH EVERY DAY TAKE ONE TABLET BY MOUTH EVERY DAY SOLD: 12/28/2020 [facility] 60 mg 03/30/2020 12:00:00 AM EDT tablet 90 TAKE ONE TABLET BY MOUTH EVERY DAY TAKE ONE TABLET BY MOUTH EVERY DAY SOLD: 07/03/2020 [facility] 60 mg 03/30/2020 12:00:00 AM EDT tablet 90 TAKE ONE TABLET BY MOUTH EVERY DAY TAKE ONE TABLET BY MOUTH EVERY DAY SOLD: 10/01/2020 [facility] krill oil 500 MG Oral Capsule Krill Oil 03/30/2020 12:00:00 AM EDT ORAL active [facility] ([facility]) 60 mg 03/30/2020 12:00:00 AM EDT tablet 90 TAKE ONE TABLET BY MOUTH EVERY DAY TAKE ONE TABLET BY MOUTH EVERY DAY SOLD: 04/02/2020 [facility] Insurance Providers Payer name Policy type / Coverage type Policy ID Covered libertarian ID Covered libertarian's relationship to carreon Policy Carreon Plan Information [facility] (HMO/PPO) HEALTH CARE [id number] 1 [id number] [facility] Healthcare Commercial [id number] Sponsored Dependent [id number] [facility] Healthcare Commercial [id number] Sponsored Dependent [id number] [facility] Healthcare Commercial [place] [id number] Sponsored Depend ent Pref Epo High Ded [facility] Trad/Edkimo Commercial [id number] Sponsored Dependent [id number] [facility] HE[facility] CARE [id number] SP [id number] [facility] Trad/MX Commercial [id number] Sponsored Dependen t 802 P UNAVAILABLE UNAVAILA BLE [facility] HEALTH CARE O [id number] S [id number] ROMANSH GEISMAR PHY [id number] SP [id number] [facility] P [id number] S [id number] [facility] Trad/MX Medigap Part B [id number] Sponsored Dependent [id number] [facility] (HMO/PPO) HEALTH CARE [id number] 1 [id number] Problems, Conditions, and Diagnoses No Information Surgeries/Procedures Procedure Description Date Indications Data Source(s) PERIODIC PREVENTIVE MED EST PATIENT 40-64YRS 12:00:00 AM EDT [facility]) Mammogram 04/30/2020 12:00:00 [facility] Results ID Date Data Source [id number] 03/31/2021 09:01:00 AM EDT [facility]) Name Value Range Interpretation Code Description Data Nikia rce(s) Supporting Document(s) Calcidiol [Mass/volume] in Serum or Plasma 86.1 ng/mL 24.0-80.0 [facility] ([facility]) This test was performed using FastPack I P Vitamin D immunoassay kit. Values obtained with different assay methods should not be used interchangeably. ID Date Data Source [id number] 03/31/2021 09:00:00 AM EDT [facility] ([facility]) Name Value Range Interpretation Code Description Data Nikia rce(s) Supporting Document(s) Thyrotropin [Units/volume] in Serum or Plasma by Detec tion limit <= 0.05 mIU/L 1.20 uIU/mL 0.36-3.74 [facility] ([facility] ) ID Date Data Source [id number] 03/31/2021 09:00:00 AM EDT [facility]) Name Value Range Interpretation Code Description Data Nikia rce(s) Supporting Document(s) Cholesterol [Mass/volume] in Serum or Plasma 267 mg/dL 131-200 [facility] ([facility]) Triglyceride [Mass/volume] in Serum or Plasma 67 mg/dL 30-150 [facility] ([facility]) Cholesterol in HDL [Mass/volume] in Serum or Plasma 78 mg/dL 35-60 [facility] ([facility]) Cholesterol in LDL [Mass/volume] in Serum or Plasma by calcu lation 176 CALC 50-159 [facility] ([facility]) ID Date Data Source [id number] 03/31/2021 09:00:00 AM EDT [facility] ([facility]) Name Value Range Interpretation Code Description Data Nikia rce(s) Supporting Document(s) Glucose [Mass/volume] in Serum or Plasma 97 mg/dL 74-99 [facility] ([facility]) 100-125 mg/dL PRE-DIABETES/FASTING >126 mg/dL DIABETES/FASTING Urea nitrogen [Mass/volume] in Serum or Plasma 12 mg/dL 7-18 [facility] ([facility]) Sodium [Moles/volume] in Serum or Plasma 142 meq/L 136-145 [facility] ([facility]) Creatinine 0.7 mg/dL 0.6-1.3 [facility] ([facility]) Chloride [Moles/volume] in Serum or Plasma 105 meq/L 98-107 [facility] ([facility]) Potassium [Moles/volume] in Serum or Plasma 4.1 meq/L 3.5-5.1 [facility] ([facility]) Glomerular filtration rate/1.73 sq M pre dicted among non-blacks [Volume Rate/Area] in Serum or Plasma by Creatinine-based formula (MDRD) Laboratory test result [facility] ([facility] ) Calcium [Mass/volume] in Serum or Plasma 9.1 mg/dL 8.5-10.1 [facility] ([facility]) Carbon dioxide, total [Moles/volume] in Serum or Plasma 27 meq/L 21 -32 [facility] ([facility]) Glomerular filtration rate/1.73 sq M pre dicted among blacks [Volume Rate/Area] in Serum or Plasma by Creatinine-based formula (MDRD) Laboratory test result [facility] ([facility]) <content>CHRONIC KIDNEY DISEASE STAGING PER NKF</content>
<content></content>
<content>STAGE I & II GFR >= 60 NORMAL TO MILDLY DECREASED</content>
<content>STAGE III GFR 30-59 MODERATELY DECREASED</content>
<content>STAGE IV GFR 15-29 SEVERELY DECREASED</content>
<content>STAGE V GFR <15 VERY LITTLE GFR LEFT</content>
<content>ESRD GFR <15 ON FUNERAL SERVICE MANAGER</content>
<content></content> ID Date Data Source [id number] 03/31/2021 09:00:00 AM EDT [facility] ([facility]) Name Value Range Interpretation Code Description Data Nikia rce(s) Supporting Document(s) Erythrocytes [#/volume] in Blood by Automated count 4.81 x10*6/UL 4.2 0-6.30 [facility] ([facility]) Leukocytes [#/volume] in Blood by Automated count 3.7 x10*3/UL 4.1-10 .9 [facility] ([facility]) Hematocrit [Volume Fraction] of Blood by Automated count 42.7 % 3 7.0-51.0 [facility] ([facility]) Hemoglobin [Mass/volume] in Blood 14.7 g/dL 12.0-18.0 [facility] ([facility]) MCHC 34.5 g/dL 31.0-38.0 [facility] MCH 30.6 pg 26.0-32.0 [facility]) MCV 88.6 fL 80.0-97.0 [facility]) Erythrocyte distribution width [Ratio] by Automated count 13.3 % 11.6-13.7 [facility] ([facility]) Platelets [#/volume] in Blood by Automated count 227 x10*3/UL 140-440 [facility] ([facility]) Lymph % 49.5 % 10.0-58.5 [facility]) MPV 8.7 FL 7.8-11.0 [facility]) Mid % 9.1 % 1.7-9.3 [facility]) Neut % 41.4 % 37.0-92.0 [facility]) Lymph # 1.8 x10*3/UL 0.6-4.1 [facility] ([facility]) Mid # 0.4 x10*3/UL 0.1-0.6 [facility] ([facility]) Neut # 1.5 x10*3/UL 2.0-7.8 [facility] ([facility]) ID Date Data Source [id number] 10/02/2020 08:57:00 AM EDT [facility] ([facility]) Name Value Range Interpretation Code Description Data Nikia rce(s) Supporting Document(s) Thyrotropin [Units/volume] in Serum or Plasma by Detec tion limit <= 0.05 mIU/L 1.76 uIU/mL 0.36-3.74 [facility] ([facility] ) ID Date Data Source [id number] 10/02/2020 08:57:00 AM EDT [facility] ([facility]) Name Value Range Interpretation Code Description Data Nikia rce(s) Supporting Document(s) Triglyceride [Mass/volume] in Serum or Plasma 76 mg/dL 30-150 [facility] ([facility]) Cholesterol [Mass/volume] in Serum or Plasma 277 mg/dL 131-200 [facility] ([facility]) Cholesterol in LDL [Mass/volume] in Serum or Plasma by calcu lation 184 CALC 50-159 [facility] ([facility]) Cholesterol in HDL [Mass/volume] in Serum or Plasma 78 mg/dL 35-60 [facility] ([facility]) ID Date Data Source [id number] 2020 10:57:00 AM EST [facility] ([facility]) Name Value Range Interpretation Code Description Data Nikia rce(s) Supporting Document(s) Hemoglobin.gastrointestinal [Presence] in Stool by Imm unologic method Laboratory test result [facility] ([facility] ) ID Date Data Source [id number] 03/27/2020 08:29:00 AM EDT [facility] ([facility]) Name Value Range Interpretation Code Description Data Nikia rce(s) Supporting Document(s) Calcidiol [Mass/volume] in Serum or Plasma 72.5 24.0-80.0 [facility] ([facility]) This test was performed using FastPack I P Vitamin D immunoassay kit. Values obtained with different assay methods should not be used interchangeably. ID Date Data Source [id number] 03/27/2020 08:29:00 AM EDT [facility] ([facility]) Name Value Range Interpretation Code Description Data Nikia rce(s) Supporting Document(s) Thyrotropin [Units/volume] in Serum or Plasma by Detec tion limit <= 0.05 mIU/L 3.07 uIU/mL 0.36-3.74 [facility] ([facility] ) ID Date Data Source [id number] 03/27/2020 08:29:00 AM EDT [facility] ([facility]) Name Value Range Interpretation Code Description Data Nkiia rce(s) Supporting Document(s) Triglyceride [Mass/volume] in Serum or Plasma 68 mg/dL 30-150 [facility] ([facility]) Cholesterol [Mass/volume] in Serum or Plasma 277 mg/dL 131-200 [facility] ([facility]) Cholesterol in HDL [Mass/volume] in Serum or Plasma 87 mg/dL 35-60 [facility] ([facility]) Cholesterol in LDL [Mass/volume] in Serum or Plasma by calcu lation 176 CALC 50-159 [facility] ([facility]) ID Date Data Source [id number] 03/27/2020 08:29:00 AM EDT [facility] ([facility]) Name Value Range Interpretation Code Description Data Nikia rce(s) Supporting Document(s) Glucose [Mass/volume] in Serum or Plasma 97 mg/dL 74-99 [facility] ([facility]) 100-125 mg/dL PRE-DIABETES/FASTING >126 mg/dL DIABETES/FASTING Urea nitrogen [Mass/volume] in Serum or Plasma 15 mg/dL 7-18 [facility] ([facility]) Creatinine 0.8 mg/dL 0.6-1.3 [facility] Potassium [Moles/volume] in Serum or Plasma 4.2 meq/L 3.5-5.1 [facility] ([facility]) Sodium [Moles/volume] in Serum or Plasma 141 meq/L 136-145 [facility] ([facility]) Chloride [Moles/volume] in Serum or Plasma 104 meq/L 98-107 [facility] ([facility]) Calcium [Mass/volume] in Serum or Plasma 9.1 mg/dL 8.5-10.1 [facility] ([facility]) Carbon dioxide, total [Moles/volume] in Serum or Plasma 30 meq/L 21 -32 [facility] ([facility]) Glomerular filtration rate/1.73 sq M pre dicted among non-blacks [Volume Rate/Area] in Serum or Plasma by Creatinine-based formula (MDRD) [facility] Glomerular filtration rate/1.73 sq M pre dicted among blacks [Volume Rate/Area] in Serum or Plasma by Creatinine-based formula (MDRD) Laboratory test result [facility] <content>CHRONIC KIDNEY DISEASE STAGING PER NKF</content>
<content></content>
<content>STAGE I & II GFR >= 60 NORMAL TO MILDLY DECREASED</content>
<content>STAGE III GFR 30-59 MODERATELY DECREASED</content>
<content>STAGE IV GFR 15-29 SEVERELY DECREASED</content>
<content>STAGE V GFR <15 VERY LITTLE GFR LEFT</content>
<content>ESRD GFR <15 ON FUNERAL SERVICE MANAGER</content>
<content></content> Procedure Social History No Information Vital Signs ID Date Data Source UNK Name Value Range Interpretation Code Description Data Source(s) Systolic blood pressure 122 mm[Hg] 122 mm[facility]Hg] [facility] RT Arm Diastolic blood pressure 60 mm[Hg] 60 mm[Hg] [facility] ([facility]) RT Arm Heart rate 64 /min 64 /min [facility] ([facility]) Body height 62.25 [in_i] 62.25 [in_i] [facility] ([facility]) 5'2.25" Body weight 195.00 [lb_av] 195.00 [lb_av] [facility] ([facility]) Body mass index (BMI) [Ratio] 35.4 kg/m2 35.4 k g/m2 [facility] Heart rate 68 /min 68 /min [facility] ([facility]) Systolic blood pressure 122 mm[Hg] 122 mm[Hg] M [facility] ([facility]) RT Arm Body weight 196.00 [lb_av] 196.00 [lb_av] [facility] ([facility]) Body mass index (BMI) [Ratio] 35.6 kg/m2 35.6 k g/m2 [facility] Body height 62.25 [in_i] 62.25 [in_i] [facility] ([facility]) 5'2.25" Diastolic blood pressure 68 mm[Hg] 68 mm[Hg] [facility] ([facility]) RT Arm
--- OUTSIDE RECORDS SUMMARY | 2021-05-25 23:44 | CCD ---
Author Author [facility] Organization [facility] Address Unknown Phone Unavailable Care Team Providers Care Piecer Up Name Role Phone Daniel, Angelica STAPLER HAND Unavailable Unavailable Daniel, Angelica STAPLER HAND Unavailable Unavailable Daniel, Angelica STAPLER HAND Unavailable Unavailable Daniel, Angelica STAPLER HAND Unavailable Unavailable Daniel, Angelica STAPLER HAND Unavailable Unavailable Daniel, Angelica STAPLER HAND Unavailable Unavailable Daniel, Angelica STAPLER HAND Unavailable Unavailable Daniel, Angelica STAPLER HAND Unavailable Unavailable Daniel, Angelica STAPLER HAND Unavailable Unavailable Daniel, Angelica STAPLER HAND Unavailable Unavailable Daniel, Angelica STAPLER HAND Unavailable Unavailable Daniel, Angelica STAPLER HAND Unavailable Unavailable Daniel, Angelica STAPLER HAND Unavailable Unavailable Daniel, Angelica STAPLER HAND Unavailable Unavailable Daniel, Angelica STAPLER HAND Unavailable Unavailable Daniel, Angelica STAPLER HAND Unavailable Unavailable Daniel, Angelica STAPLER HAND Unavailable Unavailable Daniel, Angelica STAPLER HAND Unavailable Unavailable Daniel, Angelica STAPLER HAND Unavailable Unavailable Daniel, Angelica STAPLER HAND Unavailable Unavailable Daniel, Angelica STAPLER HAND Unavailable Unavailable Daniel, Angelica STAPLER HAND Unavailable Unavailable Daniel, Angelica STAPLER HAND Unavailable Unavailable Daniel, Angelica STAPLER HAND Unavailable Unavailable Daniel, Angelica STAPLER HAND Unavailable Unavailable Daniel, Angelica STAPLER HAND Unavailable Unavailable Daniel, Angelica STAPLER HAND Unavailable Unavailable Daniel, Angelica STAPLER HAND Unavailable Unavailable Daniel, Angelica STAPLER HAND Unavailable Unavailable Daniel, Angelica STAPLER HAND Unavailable Unavailable Daniel, Angelica STAPLER HAND Unavailable Unavailable Daniel, Angelica STAPLER HAND Unavailable Unavailable Daniel, Angelica STAPLER HAND Unavailable Unavailable Daniel, Angelica STAPLER HAND Unavailable Unavailable Daniel, Angelica STAPLER HAND Unavailable Unavailable Re-disclosure Warning The records that [...] is protected by Article 27-F of the [facility] Public Health law. If you continue you may have access to information: Regarding HIV / AIDS; Provided by facilities licensed or operated by the [facility] Office of Mental Health; or Provided by the [facility] Office for People With Developmental Disabilities. If such information is present, then the following [facility] mandated warning applies: This information has [...] law may result in a fine or snf sentence or both. A general authorization for the release of medical or other information is NOT sufficient authorization for further disc losure. Encounters Encounter Providers Location Date Indications Data Source(s ) Outpatient Attender: Angelica Mello 08:00:00 AM EDT [facility] ([facility] ) Outpatient Attender: Angelica Mello 09:00:00 AM EDT [facility] ([facility] ) Medications Medication Brand Name Start [...] type / Coverage type Policy ID Covered alliance party ID Covered alliance party's relationship to carreon Policy Carreon Plan Information [facility] (HMO/PPO) HEALTH CARE [id number] 1 [id number] [facility] Healthcare Commercial [id number] Sponsored Dependent [id number] [facility] Healthcare Commercial [id number] Sponsored Dependent [id number] [facility] Healthcare Commercial Pref Epo [place] Ded [id number] Sponsored Depend ent Pref Epo High Ded [facility] Trad/[employer] Commercial [id number] Sponsored Dependent [id number] [facility] HEALTH CARE [id number] SP [id number] [facility] Trad/MX Commercial [id number] Sponsored Dependen t 802 P UNAVAILABLE UNAVAILA BLE [facility] HEALTH CARE O [id number] S 80 [id number] [place] PHY [id number] SP [id number] [facility] HEALTH CARE P [id number] S [id number] [facility] Trad/MX Medigap Part B [id number] Sponsored Dependent [id number] [facility] (HMO/PPO) HEALTH CARE [id number] 1 [id number] Problems, Conditions, and Diagnoses No Information Surgeries/Procedures Procedure Description Date Indications Data Source(s) PERIODIC PREVENTIVE MED EST PATIENT 40-64YRS 12:00:00 AM EDT [facility] Mamm[facility] 04/30/2020 12:00:00 [facility] Results ID Date Data Source [id number] 03/31/2021 09:01:00 AM EDT [facility]) Name Value Range Interpretation Code Description Data Nikia rce(s) Supporting Document(s) Calcidiol [Mass/volume] in Serum or Plasma 86.1 ng/mL 24.0-80.0 [facility] ([facility]) This test was performed using FastPack I P Vitamin D immunoassay kit. Values obtained with different assay methods should not be used interchangeably. ID Date Data Source [id number] 03/31/2021 09:00:00 AM EDT [facility]) Name Value Range Interpretation Code Description Data Nikia rce(s) Supporting Document(s) Thyrotropin [Units/volume] in Serum or Plasma by Detec tion limit <= 0.05 mIU/L 1.20 uIU/mL 0.36-3.74 [facility] ([facility] ) ID Date Data Source [id number] 03/31/2021 09:00:00 AM EDT [facility]) Name Value Range Interpretation Code Description Data Nikia rce(s) Supporting Document(s) Cholesterol [Mass/volume] in Serum or Plasma 267 mg/dL 131-200 [facility] ([facility]) Triglyceride [Mass/volume] in Serum or Plasma 67 mg/dL 30-150 [facility] ([facility]) Cholesterol in HDL [Mass/volume] in Serum or Plasma 78 mg/dL 35-60 [facility] ([facility]) Cholesterol in LDL [Mass/volume] in Serum or Plasma by calcu lation 176 CALC 50-159 [facility] ([facility]) ID Date Data Source [id number] 03/31/2021 09:00:00 AM EDT [facility] ([facility]) Name Value Range Interpretation Code Description Data Nikia rce(s) Supporting Document(s) Glucose [Mass/volume] in Serum or Plasma 97 mg/dL 74-99 [facility] ([facility]) 100-125 mg/dL PRE-DIABETES/FASTING >126 mg/dL DIABETES/FASTING Urea nitrogen [Mass/volume] in Serum or Plasma 12 mg/dL 7-18 [facility] ([facility]) Sodium [Moles/volume] in Serum or Plasma 142 meq/L 136-145 [facility] ([facility]) Creatinine 0.7 mg/dL 0.6-1.3 [facility]) Chloride [Moles/volume] in Serum or Plasma 105 meq/L 98-107 [facility] ([facility]) Potassium [Moles/volume] in Serum or Plasma 4.1 meq/L 3.5-5.1 [facility] ([facility]) Glomerular filtration rate/1.73 sq M pre dicted among non-blacks [Volume Rate/Area] in Serum or Plasma by Creatinine-based formula (MDRD) Laboratory test result [facility] ([facility] ) Calcium [Mass/volume] in Serum or Plasma 9.1 mg/dL 8.5-10.1 [facility] ([facility]) Carbon dioxide, total [Moles/volume] in Serum or Plasma 27 meq/L 21 -32 [facility] ([facility]) Glomerular filtration rate/1.73 sq M pre dicted among blacks [Volume Rate/Area] in Serum or Plasma by Creatinine-based formula (MDRD) Laboratory test result [facility] ([facility]) <content>CHRONIC KIDNEY DISEASE STAGING PER NKF</content>
<content></content>
<content>STAGE I & II GFR >= 60 NORMAL TO MILDLY DECREASED</content>
<content>STAGE III GFR 30-59 MODERATELY DECREASED</content>
<content>STAGE IV GFR 15-29 SEVERELY DECREASED</content>
<content>STAGE V GFR <15 VERY LITTLE GFR LEFT</content>
<content>ESRD GFR <15 ON VIOLIN REPAIRER</content>
<content></content> ID Date Data Source [id number] 03/31/2021 09:00:00 AM EDT [facility] ([facility]) Name Value Range Interpretation Code Description Data Nikia rce(s) Supporting Document(s) Erythrocytes [#/volume] in Blood by Automated count 4.81 x10*6/UL 4.2 0-6.30 [facility] ([facility]) Leukocytes [#/volume] in Blood by Automated count 3.7 x10*3/UL 4.1-10 .9 [facility] ([facility]) Hematocrit [Volume Fraction] of Blood by Automated count 42.7 % 3 7.0-51.0 [facility] ([facility]) Hemoglobin [Mass/volume] in Blood 14.7 g/dL 12.0-18.0 [facility] ([facility]) MCHC 34.5 g/dL 31.0-38.0 [facility] MCH 30.6 pg 26.0-32.0 [facility] MCV 88.6 fL 80.0-97.0 [facility] Erythrocyte distribution width [Ratio] by Automated count 13.3 % 11.6-13.7 [facility] ([facility]) Platelets [#/volume] in Blood by Automated count 227 x10*3/UL 140-440 [facility] ([facility]) Lymph % 49.5 % 10.0-58.5 [facility]) MPV 8.7 FL 7.8-11.0 [facility] Mid % 9.1 % 1.7-9.3 [facility] Neut % 41.4 % 37.0-92.0 [facility] Lymph # 1.8 x10*3/UL 0.6-4.1 [facility] ([facility]) Mid # 0.4 x10*3/UL 0.1-0.6 [facility] ([facility]) Neut # 1.5 x10*3/UL 2.0-7.8 [facility] ([facility]) ID Date Data Source [id number] 10/02/2020 08:57:00 AM EDT [facility] ([facility]) Name Value Range Interpretation Code Description Data Nikia rce(s) Supporting Document(s) Thyrotropin [Units/volume] in Serum or Plasma by Detec tion limit <= 0.05 mIU/L 1.76 uIU/mL 0.36-3.74 [facility] ) ID Date Data Source [id number] 10/02/2020 08:57:00 AM EDT [facility] ([facility]) Name Value Range Interpretation Code Description Data Nikia rce(s) Supporting Document(s) Triglyceride [Mass/volume] in Serum or Plasma 76 mg/dL 30-150 [facility] ([facility]) Cholesterol [Mass/volume] in Serum or Plasma 277 mg/dL 131-200 [facility] ([facility]) Cholesterol in LDL [Mass/volume] in Serum or Plasma by calcu lation 184 CALC 50-159 [facility] ([facility]) Cholesterol in HDL [Mass/volume] in Serum or Plasma 78 mg/dL 35-60 [facility] ([facility]) ID Date Data Source [id number] 2020 10:57:00 AM EST [facility] ([facility]) Name Value Range Interpretation Code Description Data Nikia rce(s) Supporting Document(s) Hemoglobin.gastrointestinal [Presence] in Stool by Imm unologic method Laboratory test result [facility] ) ID Date Data Source [id number] 03/27/2020 08:29:00 AM EDT [facility] ([facility]) Name Value Range Interpretation Code Description Data Nikia rce(s) Supporting Document(s) Calcidiol [Mass/volume] in Serum or Plasma 72.5 24.0-80.0 [facility] ([facility]) This test was performed using FastPack I P Vitamin D immunoassay kit. Values obtained with different assay methods should not be used interchangeably. ID Date Data Source [id number] 03/27/2020 08:29:00 AM EDT [facility] ([facility]) Name Value Range Interpretation Code Description Data Nikia rce(s) Supporting Document(s) Thyrotropin [Units/volume] in Serum or Plasma by Detec tion limit <= 0.05 mIU/L 3.07 uIU/mL 0.36-3.74 [facility] ([facility] ) ID Date Data Source [id number] 03/27/2020 08:29:00 AM EDT [facility]) Name Value Range Interpretation Code Description Data Nikia rce(s) Supporting Document(s) Triglyceride [Mass/volume] in Serum or Plasma 68 mg/dL 30-150 [facility] ([facility]) Cholesterol [Mass/volume] in Serum or Plasma 277 mg/dL 131-200 [facility] ([facility]) Cholesterol in HDL [Mass/volume] in Serum or Plasma 87 mg/dL 35-60 [facility] ([facility]) Cholesterol in LDL [Mass/volume] in Serum or Plasma by calcu lation 176 CALC 50-159 [facility] ([facility]) ID Date Data Source [id number] 03/27/2020 08:29:00 AM EDT [facility] ([facility]) Name Value Range Interpretation Code Description Data Nikia rce(s) Supporting Document(s) Glucose [Mass/volume] in Serum or Plasma 97 mg/dL 74-99 [facility] ([facility]) 100-125 mg/dL PRE-DIABETES/FASTING >126 mg/dL DIABETES/FASTING Urea nitrogen [Mass/volume] in Serum or Plasma 15 mg/dL 7-18 [facility] ([facility]) Creatinine 0.8 mg/dL 0.6-1.3 [facility] Potassium [Moles/volume] in Serum or Plasma 4.2 meq/L 3.5-5.1 [facility] ([facility]) Sodium [Moles/volume] in Serum or Plasma 141 meq/L 136-145 [facility] ([facility]) Chloride [Moles/volume] in Serum or Plasma 104 meq/L 98-107 [facility] ([facility]) Calcium [Mass/volume] in Serum or Plasma 9.1 mg/dL 8.5-10.1 [facility] ([facility]) Carbon dioxide, total [Moles/volume] in Serum or Plasma 30 meq/L 21 -32 [facility] ([facility]) Glomerular filtration rate/1.73 sq M pre dicted among non-blacks [Volume Rate/Area] in Serum or Plasma by Creatinine-based formula (MDRD) [facility] Glomerular filtration rate/1.73 sq M pre dicted among blacks [Volume Rate/Area] in Serum or Plasma by Creatinine-based formula (MDRD) Laboratory [facility] <content>CHRONIC KIDNEY DISEASE STAGING PER NKF</content>
<content></content>
<content>STAGE I & II GFR >= 60 NORMAL TO MILDLY DECREASED</content>
<content>STAGE III GFR 30-59 MODERATELY DECREASED</content>
<content>STAGE IV GFR 15-29 SEVERELY DECREASED</content>
<content>STAGE V GFR <15 VERY LITTLE GFR LEFT</content>
<content>ESRD GFR <15 ON VIOLIN REPAIRER</content>
<content></content> Procedure Social History No Information Vital Signs ID Date Data Source UNK Name Value Range Interpretation Code Description Data Source(s) Systolic blood pressure 122 mm[Hg] 122 mm[Hg] [facility] RT Arm Diastolic blood pressure 60 mm[Hg] 60 mm[Hg] [facility] ([facility]) RT Arm Heart rate 64 /min 64 /min [facility]) Body height 62.25 [in_i] 62.25 [in_i] [facility]) '." Body weight 195.00 [lb_av] 195.00 [lb_av] [facility] ([facility]) Body mass index (BMI) [Ratio] 35.4 kg/m2 35.4 k g/m2 [facility] ([facility]) Systolic blood pressure 122 mm[Hg] 122 mm[Hg] M [facility] ([facility]) RT Arm Heart rate 68 /min 68 /min [facility] ([facility]) Body weight 196.00 [lb_av] 196.00 [lb_av] [facility] ([facility]) Body mass index (BMI) [Ratio] 35.6 kg/m2 35.6 k g/m2 [facility] ([facility]) Diastolic blood pressure 68 mm[Hg] 68 mm[Hg] [facility] ([facility]) RT Arm Body height 62.25 [in_i] 62.25 [in_i] [facility] "
--- NOTE | 2021-05-26 20:30 | ECGEPIP ---
[facility] - ED Test Date: 2021-05-25 Pat Name: ROSEANNA LENZ Department: Room: - Gender: Female Ticket Agent: JOSE LLANDON : 1960 Requested By: SIDNEY Mehta PA-C Order Number: [id number] Reading MD: Tessy Carrillo Measurements Intervals [place] Rate: 85 P: 71 AR: 178 QRS: 61 QRSD: 76 T: 59 QT: 370 QTc: 440 Interpretive Statements Normal sinus rhythm delayed r progression no prior Electronically Signed on 05-26-2021 20:29:59 EST by Tessy Carrillo
== END 2021-05-25 23:38 | disposition left against medical advice (07) ==
LOC: M ED 21:18
DX: Z53.29 Procedure and treatment not carried out because of patient's decision for other reasons (principal)

== ENCOUNTER → 2022-05-13 | Outpatient (CLI) | payer BC | LOC: M WHC 13:24 | PROVIDERS: ATTEND Internal Medicine | DX: M54.50 Low back pain, unspecified (principal) ==

== ENCOUNTER → 2022-06-13 | Outpatient (CLI) | payer BC ==
[~2022-06-13] MED LIST: GASTROGRAFIN SOLUTION 30ML As Ordered ONE; ISOVUE-370 76% 100ML VIAL As Ordered ONE
== END ==
LOC: M RAD 12:30
PROVIDERS: ATTEND Registered Nurse
DX: R10.31 Right lower quadrant pain (principal)

== ENCOUNTER → 2023-02-27 | Outpatient (CLI) | payer BC | LOC: M RAD 08:43 | PROVIDERS: ATTEND Internal Medicine Gastroenterology | DX: R10.11 Right upper quadrant pain (principal) ==